=== PATIENT | female | born 1970 | race American Indian/Alaskan Native ===

== ENCOUNTER 2018-04-06 01:46 | Emergency (ER) | payer OTHER ==
[2018-04-06 02:16] VITALS: BP 112/65; PULSE 75; RESP 16; TEMP 98.4; O2SAT 100
--- NOTE | 2018-04-06 03:02 | C.PDOC ---
History Of Present Illness 47 year old female presents to the ER with a complaint of right ankle pain after she tripped and fell down a few steps and twisted her ankle. Patient has a Hx of right ankle fracture a year ago. Patient has been able to bear weight on the ankle and drive after the injury. Denies weakness or numbness. Time Seen by Provider: 04/06/18 02:34 Chief Complaint (Nursing): Lower Extremity Problem/Injury History Per: Patient History/Exam Limitations: no limitations Onset/Duration Of Symptoms: Hrs Current Symptoms Are (Timing): Still Present Recent travel outside of the [place]: No - Ankle/Foot Description Of Injury: Twisted Past Medical History Reviewed: Historical Data, Nursing Documentation, Vital Signs Vital Signs: Last Vital Signs Temp 98.4 F 04/06/18 02:05 Pulse 75 04/06/18 02:05 Resp 16 04/06/18 02:05 BP 112/65 04/06/18 02:05 Pulse Ox 100 04/06/18 02:05 Family History: States: Unknown Family Hx - Social History Hx Alcohol Use: No Hx Substance Use: No - Immunization History Hx Tetanus Toxoid Vaccination: No Hx Influenza Vaccination: No Hx Pneumococcal Vaccination: No Review Of Systems Musculoskeletal: Positive for: Other (Right ankle) Neurological: Negative for: Weakness, Numbness Physical Exam - Physical Exam Appears: Non-toxic Skin: Normal Color, Warm, Dry Head: Atraumatic, Normacephalic Eye(s): bilateral: Normal Inspection Extremity: Capillary Refill (<2 seconds), Other (Tenderness and swelling to right lateral malleolus, minimal tenderness to right medial malleolus. ROM of right ankle slightly limited secondary to pain.) Pulses: Left Dorsalis Pedis: Normal, Right Dorsalis Pedis: Normal Neurological/Psych: Oriented x3, Normal Speech, Normal Motor, Normal Sensation Gait: Steady ED Course And Treatment O2 Sat by Pulse Oximetry: 100 (Room air) Pulse Ox Interpretation: Normal - Other Rad Right ankle x-ray X-Ray: Interpreted by Me, Viewed By Me Interpretation: No acute fractures or dislocations Progress Note: Tylenol administered. Right ankle x-ray ordered, results were negative. AARON wrap applied for support, patient was instructed in crutch walking. vitals are stable, will discharge home with instructions to follow up with PMD/ Ortho. 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 - Scribe Statement The provider has reviewed the documentation as recorded by the Scribricki Olson All medical record entries made by the Bolivaribricki were at my direction and personally dictated by me. I have reviewed the chart and agree that the record accurately reflects my personal performance of the history, physical exam, medical decision making, and the department course for this patient. I have also personally directed, reviewed, and agree with the discharge instructions and disposition.
--- NOTE | 2018-04-06 12:14 | RAD ---
Date of service: 04/06/2018 PROCEDURE: Right Ankle Radiographs. HISTORY: pain, twisting injury COMPARISON: None available. FINDINGS: BONES: Bone alignment and mineralization are normal. There is no acute displaced fracture or bone destruction. JOINTS: Normal. No osteoarthritis. Ankle mortise maintained. Talar dome intact SOFT TISSUES: There is mild lateral soft tissue swelling. OTHER FINDINGS: None. IMPRESSION: No acute fracture or dislocation. Mild lateral soft tissue swelling.
== END 2018-04-06 03:13 | disposition home or self-care (01) ==
LOC: C.ER 01:46
DX: S93.401A Sprain of unspecified ligament of right ankle, initial encounter (principal); W10.9XXA Fall (on) (from) unspecified stairs and steps, initial encounter